=== PATIENT | female | born 1985 | race Caucasian/White ===

== ENCOUNTER 2016-08-11 01:20 | Emergency (ER) | payer MEDICAID ==
[2016-08-11 02:00] LABS: CALCIUM 8.6 mg/dL (8.5-10.1); CARBON DIOXIDE 26.4 mmol/L (21-32); CHLORIDE SERUM 104 mmol/L (98-107); CREATININE SERUM 0.8 mg/dL (0.6-1.0); GFR1 > 60 mL/min; GLUCOSE SERUM 113 mg/dL (74-106); POTASSIUM SERUM 3.6 mmol/L (3.5-5.1); SODIUM SERUM 141 mmol/L (136-145)
[2016-08-11 02:04] LABS: ALBUMIN 3.8 g/dL (3.4-5.0); ALKALINE PHOSPHATASE 113 U/L (46-116); ALT/SGPT 22 U/L (14-59); AST/SGOT 16 U/L (15-37); BILIRUBIN TOTAL 0.19 mg/dL (0.20-1.00); TOTAL PROTEIN, SERUM 7.7 g/dL (6.4-8.2)
[2016-08-11 02:24] LABS: BASOPHIL % 0.4 % (0-2); PLATELET COUNT 261 x10^3mcL (130-400)
[2016-08-11 03:34] VITALS: BP 143/95
== END 2016-08-11 03:34 | disposition home or self-care (01) ==
LOC: ED 01:20
PROVIDERS: Emergency Medicine
DX: N23 Unspecified renal colic (principal)
CPT/HCPCS: J1170; J1885; J7030

== ENCOUNTER 2016-08-11 17:17 | Emergency (ER) | payer MEDICAID ==
[~2016-08-11] VITALS: Ht 152.4 cm; Wt 69.8 kg
[2016-08-11 18:34] LABS: BASOPHIL % 0.4 % (0-2); PLATELET COUNT 275 x10^3mcL (130-400); RED CELL DISTRIBUTION WIDTH 13.6 % (11.5-14.5)
[2016-08-11 18:39] LABS: CALCIUM 8.7 mg/dL (8.5-10.1); CARBON DIOXIDE 28.5 mmol/L (21-32); CHLORIDE SERUM 103 mmol/L (98-107); CREATININE SERUM 0.7 mg/dL (0.6-1.0); GFR1 > 60 mL/min; GLUCOSE SERUM 108 mg/dL (74-106); POTASSIUM SERUM 3.1 mmol/L (3.5-5.1); SODIUM SERUM 140 mmol/L (136-145)
[2016-08-11 18:44] LABS: ALBUMIN 3.8 g/dL (3.4-5.0); ALKALINE PHOSPHATASE 101 U/L (46-116); ALT/SGPT 20 U/L (14-59); AST/SGOT 16 U/L (15-37); BILIRUBIN TOTAL 0.28 mg/dL (0.20-1.00); TOTAL PROTEIN, SERUM 7.5 g/dL (6.4-8.2)
[2016-08-11 20:25] VITALS: BP 121/87
== END 2016-08-11 20:25 | disposition home or self-care (01) ==
LOC: ED 17:17
PROVIDERS: Specialist
DX: N23 Unspecified renal colic (principal)
CPT/HCPCS: 83880; J1170; J1200; J1885; J2405; J3490; J7030

== ENCOUNTER 2016-10-21 20:34 | Emergency (ER) | payer MEDICAID ==
[2016-10-21 22:12] VITALS: BP 143/98
== END 2016-10-21 22:12 | disposition home or self-care (01) ==
LOC: ED 20:34
DX: R51 Headache (principal); H57.11 Ocular pain, right eye

== ENCOUNTER 2017-02-14 18:10 | Emergency (ER) | payer MEDICAID ==
[2017-02-14 20:34] VITALS: BP 139/97
== END 2017-02-14 20:34 | disposition home or self-care (01) ==
LOC: ED 18:10
DX: G44.209 Tension-type headache, unspecified, not intractable (principal); N39.0 Urinary tract infection, site not specified; R09.81 Nasal congestion; J34.89 Other specified disorders of nose and nasal sinuses
CPT/HCPCS: J0696; J1885; Q0162

== ENCOUNTER 2017-07-23 17:16 | Emergency (ER) | payer MEDICAID ==
[~2017-07-23] VITALS: Ht 152.4 cm; Wt 72.6 kg
[2017-07-23 17:32] VITALS: BP 126/96
== END 2017-07-23 19:27 | disposition home or self-care (01) ==
LOC: ED 17:16
DX: J01.90 Acute sinusitis, unspecified (principal); G43.909 Migraine, unspecified, not intractable, without status migrainosus

== ENCOUNTER 2017-11-21 16:07 | Emergency (ER) | payer MEDICAID ==
[~2017-11-21] VITALS: Ht 152.4 cm; Wt 71.7 kg
[2017-11-21 16:12] VITALS: Ht 152.4 cm; Wt 71.7 kg
[2017-11-21 18:00] LABS: UA SPECIFIC GRAVITY <=1.005 (1.005-1.035); microscopic required? YES; urine erythrocyte 2+ (NEGATIVE)
[2017-11-21 19:24] VITALS: BP 155/99
== END 2017-11-21 19:24 | disposition home or self-care (01) ==
LOC: ED 16:07
PROVIDERS: Emergency Medicine
DX: N10 Acute pyelonephritis (principal)
CPT/HCPCS: J0696; J1885; J3490

== ENCOUNTER 2018-04-10 22:37 | Emergency (ER) | payer MEDICAID ==
[~2018-04-10] VITALS: Ht 152.4 cm; Wt 73.9 kg
[2018-04-10 22:39] VITALS: Ht 152.4 cm; Wt 73.9 kg
[2018-04-11 00:41] VITALS: BP 160/110
== END 2018-04-11 00:41 | disposition home or self-care (01) ==
LOC: ED 22:37
DX: R04.0 Epistaxis (principal); R51 Headache; Z98.890 Other specified postprocedural states

== ENCOUNTER 2018-04-16 16:28 | Emergency (ER) | payer SELFPAY ==
[~2018-04-16] VITALS: Ht 152.4 cm; Wt 72.6 kg
[2018-04-16 16:30] VITALS: Ht 152.4 cm; Wt 72.6 kg
[2018-04-16 18:01] LABS: BASOPHIL % 0.4 % (0-2); PLATELET COUNT 269 x10^3mcL (130-400); RED CELL DISTRIBUTION WIDTH 13.5 % (11.5-14.5)
[2018-04-16 18:06] LABS: CALCIUM 8.8 mg/dL (8.5-10.1); CARBON DIOXIDE 27.4 mmol/L (21-32); CHLORIDE SERUM 103 mmol/L (98-107); CREATININE SERUM 0.7 mg/dL (0.6-1.0); GFR1 > 60 mL/min; GLUCOSE SERUM 92 mg/dL (74-106); POTASSIUM SERUM 3.5 mmol/L (3.5-5.1); SODIUM SERUM 140 mmol/L (136-145)
[2018-04-16 19:29] VITALS: BP 140/82
== END 2018-04-16 19:29 | disposition home or self-care (01) ==
LOC: ED 16:28
PROVIDERS: Emergency Medicine
DX: R04.0 Epistaxis (principal); R51 Headache; R53.1 Weakness; R06.02 Shortness of breath; R11.10 Vomiting, unspecified; Z98.890 Other specified postprocedural states
CPT/HCPCS: 36415